=== PATIENT | female | born 1945 | race Caucasian/White ===

== ENCOUNTER 2024-04-17 16:38 | Inpatient (IN) ==
--- NOTE | 2024-04-17 16:54 | ED.PDOC ---
General ED Provider: Dr. CHARLIE WILSON MD Chief Complaint: Altered Mental Status Stated Complaint: Patient is a 78-year-old female that was brought into the emergency department for altered mental status. Patient's suppose a last known well by family member was this morning. They stated that the patient took a nap this afternoon and when she woke up has been somewhat altered. The patient's family ember stated that they gave her sodium pills thinking that this might help her but the patient's had no change. Patient's family bedside stated that the patient is normally very sharp and with it. They stated that the patient was talking about cooking bourbon balls this afternoon and could not complete sentences or thought processes. The family member stated that this is not like the patient. She denied the patient having any recent falls or head trauma. She denied the patient having any nausea, vomiting, diarrhea, dizziness, syncope, chest pain, or shortness of breath. In the emergency department patient has stable vital signs. Patient's GCS is 14. Time Seen by Provider: 04/17/24 16:42 Mode of Arrival: Wheelchair Information Source: Patient and Family Exam Limitations: No limitations Primary Care Provider: KAREN DAVID APRN, CHIEF SERVICE OBSERVER-C Nursing and Triage Documentation Reviewed and Agree: Yes What is Opioid Naive?: *Opioid Naive implies the patient is not already taking opioids or not chronically receiving opioids on a daily basis. *PRN dosing is not "usually" associated with tolerance. *Patients are at higher risk of over-sedation and aspiration. What is Opioid Tolerant?: *Opioid Tolerance implies less than the expected response to an opioid. *Acquired tolerance is defined by the patient taking 60mg of oral morphine daily (or equianalgesic dose of another opioid) for 1 week or more. *Often associated with chronic pain. *May take more than usual dose to achieve desired pain control. Review of Systems Review Of Systems Constitutional: Reports Other (Altered mental status) All Other Systems: Reviewed and Negative [facility] Medical History Wheezing R06.2 - Wheezing (ICD-10) Cough R05 - Cough (ICD-10) Hyponatremia E87.1 - Hypo-osmolality and hyponatremia (ICD-10) Fluid level behind tympanic membrane will try OTC antihistamine H65.90 - Unspecified nonsuppurative otitis media, unspecified ear (ICD-10) Decreased hearing of right ear will take OTC antihistamine appointment with Dr. Macdonald for evaluation H91.91 - Unspecified hearing loss, right ear (ICD-10) History of asthma Z87.09 - Personal history of other diseases of the respiratory system (ICD- 10) Cataract H26.9 - Unspecified cataract (ICD-10) Hypertension I10 - Essential (primary) hypertension (ICD-10) Allergic sinusitis J30.9 - Allergic rhinitis, unspecified (ICD-10) Family History Mother Cerebrovascular accident Hypertension FATHER Hypertension Social History Smoking and tobacco status: Current some day smoker Tobacco: How many years used: 20 Quit status: considering quitting Second hand smoke exposure: Yes Smoking risk assessment performed: No Alcohol intake: current Substance use type: does not use Angely/quaker: Church Special angely needs: No Agree to transfusion: Yes Adopted: No Caregiver/support person: Yes Foster care: No Household members: family Housing: house Lives independently: Yes Highest education level completed: high school graduate Financial difficulty paying for basics: not applicable service: No skilled nursing: No Current occupational status: retired Current occupational exposures/hazards: No Pets and animals: Yes Leisure activites: other History of recent travel: No Sexually active: No Do you think of yourself as: straight/heterosexual Current gender identity: female Seatbelt use: always Helmet use: No Drives intoxicated or rides with intoxicated straddle truck driver: No Water heater temperature set < 120 degrees: Yes Working smoke detector in home: Yes Fire extinguisher in home: Yes Carbon monoxide detector in home: Yes Firearms in home: Yes Firearms unloaded and locked: Yes Surgical History History of tubal ligation Z98.51 - Tubal ligation status (ICD-10) History of section Z98.891 - History of uterine scar from previous surgery (ICD-10) Cataract extraction and insertion of intraocular lens Status post appendectomy Z90.49 - Acquired absence of other specified parts of digestive tract (ICD- 10) Physical Exam Physical Exam Appearance: Reports Well-nourished and Other (Patient altered from baseline.) Ill-appearing: None Pain Distress: None Eyes: Reports SANJUANITA, EOMI and Conjunctiva clear ENT: Reports Nose normal and Oropharynx normal Neck: Supple Respiratory: Reports Airway patent, Breath sounds clear, Breath sounds equal and Respirations nonlabored Cardiovascular: Reports RRR, Pulses normal, No rub and No murmur GI/: Reports Soft, Nontender, No masses, Bowel sounds normal and No Organomegaly Musculoskeletal: Reports Normal strength, ROM intact and No edema Skin: Reports Warm, Dry and Normal color Neurological: Reports Sensation intact, Motor intact and Alert to verbal Psychiatric: Reports Other (Unable to examine due to patient's current status.) Critical Care Note Critical Care Note Total Critical Care Time (mins): 120 Comments: Critical Care Procedure Note Authorized and Performed by:Dr. Charlie Wilson MD, MPH Total critical care time: 120minutes Due to a high probability of clinically significant, life threatening deterioration, the patient required my highest level of preparedness to intervene emergently and I personally spent this critical care time directly and personally managing the patient. This critical care time included obtaining a history; examining the patient; pulse oximetry; ordering and review of studies; arranging urgent treatment with development of a management plan; evaluation of patient's response to treatment; frequent reassessment; and, discussions with other providers. This critical care time was performed to assess and manage the high probability of imminent, life-threatening deterioration that could result in multi-organ failure. It was exclusive of separately billable procedures and treating other patients and teaching time. Please see MDM section and the rest of the note for further information on patient assessment and treatment. Course Course 04/17/24 16:55 04/17/24 16:55 Orders, Labs, Meds: Lab Review 04/17/24 04/17/24 04/17/24 16:55 17:11 17:29 WBC 9.02 RBC 3.87 L Hgb 12.5 Hct 39.1 MCV 101.0 H MCH 32.3 H MCHC 32.0 RDW Coeff of [place] 13.8 Plt Count 239 Immature Gran % (Auto) 0.4 Neut % (Auto) 61.5 Lymph % (Auto) 26.7 [place] % (Auto) 8.8 Eos % (Auto) 1.8 Baso % (Auto) 0.8 Neut # (Auto) 5.6 Lymph # (Auto) 2.4 [place] # (Auto) 0.8 Eos # (Auto) 0.2 Baso # (Auto) 0.1 Immature Gran # (Auto) 0.0 Sodium 131.8 L Potassium 3.74 Chloride 93.8 L Carbon Dioxide 29.4 Anion Gap 12.34 BUN 17.0 Creatinine 0.80 Estimated GFR (MDRD) 70.00 BUN/Creatinine Ratio 21.25 Glucose 124.3 H Lactic Acid 0.72 Calcium 9.37 Magnesium 1.68 Total Bilirubin 0.47 AST 23.3 ALT 17.8 Alkaline Phosphatase 84.2 Troponin I < 0.012 Total Protein 8.15 Albumin 4.43 Globulin 3.72 Albumin/Globulin Ratio 1.19 Urine Color Light Urine Clarity Clear Urine pH 7.5 Ur Specific [place] 1.020 Urine Protein 1+ H Urine Glucose (UA) Negative Urine Ketones Trace H Urine Blood Trace-intact H Urine Nitrite Negative Urine Bilirubin Negative Urine Urobilinogen 0.2 Ur Leukocyte Esterase Negative Urine Microscopic WBC 0-2 Ur Squamous Epith Cells Not present Hyaline Casts 0-2 Urine Opiates Screen Negative Ur Oxycodone Screen Negative Urine Methadone Screen Negative Ur Barbiturates Screen Negative U Tricyclic Antidepress Negative Ur Phencyclidine Scrn Negative Ur Amphetamine Screen Negative U Methamphetamines Scrn Negative U Benzodiazepines Scrn Negative Urine Cocaine Screen Negative U Cannabinoids Screen Negative Influ A Molecular Assay Negative by naat Influ B Molecular Assay Negative by naat SARS CoV-2 RNA Rapid MARLA Negative Orders Category Date Time Status EKG-(ED ONLY) Stat CARDIO 04/17/24 16:46 Completed NEBULIZER TREATMENT Stat CARDIO 04/17/24 19:21 Ordered NPO REMINDER: IMAGING ONCE CARE 04/17/24 18:33 Completed Catheter [ED CATHETER INSERTION AND CARE] .ONCE EMERGENCY 04/17/24 18:45 Active ED HIGH SCHOOL SCIENCE TEACHER APPLIED .ONCE EMERGENCY 04/17/24 16:49 Active IV [ED IV/MEDIPORT/POWERPORT] .ONCE EMERGENCY 04/17/24 16:46 Active CBC W/ AUTO DIFF Stat LAB 04/17/24 16:55 Completed CMP [COMPREHENSIVE METABOLIC PANEL] Stat LAB 04/17/24 16:55 Completed DRUG SCREEN (RAPID FOR ED) [DRUG SCREEN, URINE, RAPID] LAB 04/17/24 17:29 Completed Stat FLU A/B MOLECULAR Stat LAB 04/17/24 17:11 Completed LACTIC ACID Stat LAB 04/17/24 16:55 Completed MAGNESIUM Stat LAB 04/17/24 16:55 Completed SARS COV-2 RNA RAPID MARLA Stat LAB 04/17/24 17:11 Completed TROPONIN I Stat LAB 04/17/24 16:55 Completed URINALYSIS C & S IF INDICATED Stat LAB 04/17/24 17:29 Completed 0.9 % Sodium Chloride [Saline Flush] Meds 04/17/24 16:46 Active 1 syr IVF PRN PRN Aspirin [Aspirin Chewable] Meds 04/17/24 18:34 Discontinued 324 mg PO ONCE STA Ceftriaxone 1 gm Vial [Rocephin 1 gm Vial] Meds 04/17/24 18:19 Discontinued 1 gm IVP ONCE ONE Hydralazine HCl Meds 04/17/24 18:17 Discontinued 10 mg IVP ONCE STA Ipratropium/Albuterol Neb [Duoneb] Meds 04/17/24 19:21 Discontinued 3 ml NEB ONCE STA Methylprednisolone Sod Succ/Pf [Solu-Medrol 125 mg] Meds 04/17/24 19:20 Discontinued 125 mg IVP ONCE ONE Sodium Chloride 0.9% [Sodium Chloride] 1,000 ml Meds 04/17/24 16:46 Discontinued IV BOLUS CHEST, 1V AP ONLY Stat RADS 04/17/24 16:[address] HEAD W/O CONTRAST Stat RADS 04/17/24 16:46 Completed CTA ANGIO HEAD Stat RADS 04/17/24 18:33 Completed CTA ANGIO NECK Stat RADS 04/17/24 18:33 Taken Medications Generic Name Dose Route Start Last Admin Trade Name Freq PRN Reason Stop Dose Admin Sodium Chloride 1 syr 04/17/24 16:46 0.9% Sodium Chloride 10 Ml Disp.Syrin IVF PRN PRN To flush IV Discontinued Medications Generic Name Dose Route Start Last Admin Trade Name Freq PRN Reason Stop Dose Admin Albuterol/Ipratropium 3 ml 04/17/24 19:21 Ipratropium/Albuterol Vial.Neb NEB 04/17/24 19:22 ONCE STA Aspirin 324 mg 04/17/24 18:34 04/17/24 18:47 Aspirin 81 Mg Tab.Chew PO 04/17/24 18:35 324 mg ONCE STA Administration Ceftriaxone Sodium 1 gm 04/17/24 18:19 04/17/24 19:00 Ceftriaxone 1 Gm Vial IVP 04/17/24 18:20 1 gm ONCE ONE Administration Hydralazine HCl 10 mg 04/17/24 18:17 04/17/24 18:37 Hydralazine Hcl 20 Mg/Ml Sdv IVP 04/17/24 18:18 10 mg ONCE STA Administration Sodium Chloride 1,000 mls @ 1,000 mls/hr 04/17/24 16:46 04/17/24 17:56 Sodium Chloride IV 04/17/24 17:45 1,000 mls/hr BOLUS ONE Administration Methylprednisolone Sodium Succinate 125 mg 04/17/24 19:20 Methylprednisolone Sod Succ/Pf 125 Mg/2 Ml Vial IVP 04/17/24 19:21 ONCE ONE Vital Signs: Temp Pulse Resp BP Pulse Ox 04/17/24 16:43 96.8 F L 84 20 178/79 H 92 L Physician Progress Note: Patient is a 78-year-old female that was brought into the emergency department for altered mental status. Patient's suppose a last known well by family member was this morning. They stated that the patient took a nap this afternoon and when she woke up has been somewhat altered. The patient's family ember stated that they gave her sodium pills thinking that this might help her but the patient's had no change. Patient's family bedside stated that the patient is normally very sharp and with it. They stated that the patient was talking about cooking bourbon balls this afternoon and could not complete sentences or thought processes. The family member stated that this is not like the patient. She denied the patient having any recent falls or head trauma. She denied the patient having any nausea, vomiting, diarrhea, dizziness, syncope, chest pain, or shortness of breath. In the emergency department patient has stable vital signs. Patient's GCS is 14. NIH Score 5. -At bedside patient was in understanding the commands that were being asked of her. I asked her to lift her legs and she would raise her arms. I also asked her to close her eyes and open them and she did not seem to understand. Eventually she did perform these tasks however it took a lot of explaining to the patient and showing the patient what we wanted her to do. -NIH Score 5. -Patient has O2 sat of 92 to 93% on room air. Will place patient on O2 at 2 L to keep patient's O2 sat above 94%. -Will order CT of the head due to patient's altered mental status. -Will order an EKG, troponin, and chest x-ray. Will also order baseline labs. -Will give the patient IV normal saline 1 L bolus for dehydration. -EKG shows normal sinus rhythm with a rate of 84 bpm. Normal axis noted. No acute ST elevations noted. This was interpreted by the ER physician. -CBC unremarkable. Patient has mild hyponatremia at 131 and hypochloremia at 93.8. We are currently treated with IV normal saline. 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 2. Atrophy 3. Scattered white matter attenuation likely secondary to chronic small vessel disease. 4. No acute findings. -Since patient does not have an intracranial bleed will give aspirin 324 mg once for antiplatelet therapy. -Patient's blood pressure is gone up to 206/85. Will give IV hydralazine 10 mg for hypertensive emergency. -Chest x-ray shows a left lower lung infiltrate possibly pneumonia. This was interpreted by the ER physician. Will treat for pneumonia as possible cause of patient's altered mental status. Will give IV Rocephin 1 g. -Will give IV methylprednisolone 125 mg and a DuoNeb treatment for patient's COPD. -Troponin negative. Urinalysis negative, UDS negative. -Patient's blood pressures come down to 183/83. -CTA of the head showed - No large vessel occlusion, hemodynamically significant stenosis or aneurysms. Mild small vessel disease and age-related involution. No acute intracranial process. Left maxillary sinus disease. -Will contact hospitalist for admission. (1999) spoke to the hospitalist, Anthony Singleton NP at [facility] about admission for altered mental status and community-acquired pneumonia with acute hypoxemic respiratory failure. She is agreed to admit the patient. At the current time patient's vital signs are stable. Patient is alert and oriented to person and place. GCS 15 Discharge Plan Discharge Patient Disposition: PLACED OBSERVATION Discharge Problem: Acute alteration in mental status, Generalized weakness, Hypertensive emergency, Community acquired pneumonia of left lower lobe of lung, Acute hypoxic respiratory failure, Acute hyponatremia Did you review [place] TEST FACILITY ENGINEER for ALL controlled substances?: Not Applicable ED Provider: CHARLIE WILSON Condition: Stable Parks Coma Scale Parks Coma Scale Eye Opening Response: Spontaneously Best Verbal Response: Confused Best Motor Resposne: Obeys Commands Suzy Coma Scale Score Total: 14 Response Scores: Best Response = 15 Comatose Client = 8 or Less Totally Unresponsive = 3
[2024-04-17 17:04] LABS: BASOPHILS # (AUTO) 0.1 K/uL (0-0.2); BASOPHILS % (AUTO) 0.8 % (0.0-3.0); EOSINOPHILS # (AUTO) 0.2 K/ul (0.0-0.7); EOSINOPHILS % (AUTO) 1.8 % (0.0-7.0); HEMATOCRIT 39.1 % (37.0-47.0); HEMOGLOBIN 12.5 g/dl (12.0-16.0); IMMATURE GRANULOCYTE % (AUTO) 0.4 % (0.0-5.0); LYMPHOCYTES # (AUTO) 2.4 K/uL (0.60-3.4); LYMPHOCYTES % (AUTO) 26.7 (10.0-50.0); MEAN CORPUSCULAR HEMOGLOBIN 32.3 pg (27.0-31.0); MONOCYTES # (AUTO) 0.8 K/uL (0.4-2.0); MONOCYTES % (AUTO) 8.8 (0-10); NEUTROPHILS # (AUTO) 5.6 K/ul (2.0-6.9); NEUTROPHILS % (AUTO) 61.5 % (42.2-75.2); PLATELET COUNT 239 10^3/uL (140-440); RDW COEFFICIENT OF VARIATION 13.8 % (11.6-14.8); RED BLOOD COUNT 3.87 10^6/ul (4.20-5.40); WHITE BLOOD COUNT 9.02 K/ul (4.6-10.2)
[2024-04-17 17:19] LABS: ALANINE AMINOTRANSFERASE 17.8 U/L (0-35); ALBUMIN 4.43 g/dL (3.5-5.0); ALKALINE PHOSPHATASE 84.2 U/L (53-141); ASPARTATE AMINO TRANSFERASE 23.3 U/L (14-36); BILIRUBIN,TOTAL 0.47 mg/dL (0.2-1.3); CALCIUM 9.37 mg/dL (8.4-10.2); CARBON DIOXIDE 29.4 mmol/L (22-30.0); CHLORIDE 93.8 mmol/L (98-107); GLUCOSE 124.3 mg/dL (74-106); MAGNESIUM 1.68 mg/dL (1.6-2.3); POTASSIUM 3.74 mmol/L (3.5-5.1); SODIUM 131.8 mmol/L (134.5-145); TOTAL PROTEIN 8.15 g/dL (6.3-8.2)
[2024-04-17 17:31] LABS: TROPONIN I < 0.012 ng/ml (0.0000-0.120)
--- NOTE | 2024-04-17 17:51 | DI ---
EXAM: CHEST FRONTAL VIEW HISTORY: Altered mental status COMPARISON: None IMPRESSION: Heart size upper limit normal. Mild to moderate atherosclerotic disease. Questionable mild infiltra te in the left base. Lungs were otherwise unremarkable. No pleural fluid, vascular congestion or pn eumothorax. No acute bony finding. - - - - -
[2024-04-17 17:52] LABS: BILIRUBIN,URINE Negative (NEGATIVE); CLARITY,URINE Clear (CLEAR); COLOR,URINE Light (YELLOW); GLUCOSE, URINE (UA) Negative (NEGATIVE); KETONES,URINE Trace (NEGATIVE); LEUKOCYTE ESTERASE ,URINE Negative (NEGATIVE); NITRITE,URINE Negative (NEGATIVE); PH,URINE 7.5 (5-9); PROTEIN,URINE 1+ (NEGATIVE); URINE, BLOOD Trace-intact (NEGATIVE); UROBILINOGEN,URINE 0.2 (0.2)
--- NOTE | 2024-04-17 17:54 | CT ---
EXAM: CT HEAD WITHOUT CONTRAST TECHNIQUE: Noncontrast CT of the head with multiple reformats. HISTORY: Altered mental status COMPARISON: None. FINDINGS: Ventricular size is normal. Old infarct right cerebellar hemisphere. Mild temporal atrophy. Scatter ed white matter attenuation likely secondary to chronic small vessel ischemia. Old appearing lacunar infarct of the junction of the caudate head and caudate body nucleus on the left. [place]-white matter interfaces are preserved with no evidence of acute infarct. No evidence of intracranial hemorrhage. No midline shift or mass effect. No ectopia. Paranasal sinuses and mastoid air cells are clear. O rbital contents are normal. The calvarium is intact. IMPRESSION: 1. 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 2. Atrophy 3. Scattered white matter attenuation likely secondary to chronic small vessel disease. 4. No acute findings. All CT scans are performed using dose optimization techniques as appropriate to the performed exam an d includes at least one of the following: Automated exposure control, adjustment of the mA and/or kV according to size, and the use of iterative reconstruction technique. All CT scans are performed using dose optimization techniques as appropriate to the performed exam an d include at least one of the following: Automated exposure control, adjustment of the mA and/or kV according t o size, and the use of iterative reconstruction technique.
[2024-04-17 17:55] LABS: SQUAMOUS EPITHELIAL CELL,UR NOT PRESENT (0-5)
[2024-04-17] MEDS: SODIUM CHLORIDE 1,000 ML IV ONE (17:56)
[2024-04-17 18:03] LABS: AMPHETAMINE SCREEN,URINE NEGATIVE (NEGATIVE); BARBITURATE SCREEN,URINE NEGATIVE (NEGATIVE); BENZODIAZEPINES SCREEN,URINE NEGATIVE (NEGATIVE); COCAIN SCREEN,URINE NEGATIVE (NEGATIVE); METHADONE URINE SCREEN NEGATIVE (NEGATIVE); METHAMPHETAMINES SCREEN,URINE NEGATIVE (NEGATIVE); OPIATE SCREEN,URINE NEGATIVE (NEGATIVE); OXYCODONE URINE SCREEN NEGATIVE (NEGATIVE); PHENCYCLIDINE SCREEN,URINE NEGATIVE (NEGATIVE); TRICYCLIC ANTIDEPRESSANTS URIN NEGATIVE (NEGATIVE)
[2024-04-17 18:04] LABS: CANNABINOID SCREEN,URINE NEGATIVE (NEGATIVE)
[2024-04-17 18:07] LABS: URINE WBC, MICROSCOPIC 0-2 (0-2)
[2024-04-17 18:08] LABS: HYALINE CASTS, URINE 0-2 (NOT PRESENT)
[2024-04-17 18:32] LABS: MOLECULAR FLU A NEGATIVE BY NAAT (NEGATIVE); MOLECULAR FLU B NEGATIVE BY NAAT (NEGATIVE); SARS COV-2 RNA RAPID NAAT NEGATIVE (NEGATIVE)
[2024-04-17] MEDS: HYDRALAZINE HCL IVP STA (18:37)
[2024-04-17] MEDS: ASPIRIN CHEWABLE PO STA (18:47)
[2024-04-17] MEDS: ROCEPHIN 1 GM VIAL IVP ONE (19:00)
--- NOTE | 2024-04-17 19:46 | CT ---
EXAM: CTA HEAD WITHOUT/WITH CONTRAST HISTORY: Altered mental status COMPARISON: CT head from 04/17/2024 TECHNIQUE: Multi-slice precontrast and postcontrast transaxial helical images are acquired through [facility] head according to an angiogram protocol. 3-D volume images are provided. All CT scans are perfor med using dose optimization techniques as appropriate to the performed exam and includes at least one of the following: Automated exposure control, adjustment of the mA and/or kV according to size, and the use of iterative reconstruction technique. CONTRAST: Intravenous FINDINGS: Vascular: The left vertebral artery is dominant. The distal right vertebral artery is diminutive in caliber but patent. The basilar artery is patent. The cavernous through supraclinoid segments of [facility] internal carotid arteries are atherosclerotic with calcified atheromatous plaque. There is no shara dence of hemodynamically significant stenosis. The anterior cerebral arteries have normal caliber an d patency. The bilateral middle cerebral arteries have normal caliber and patency. The posterior ce rebral arteries have normal caliber and patency. No aneurysms or hemodynamically significant stenosi s. Nonvascular: The midline structures are central. The ventricles and sulci are slightly prominent. There is low attenuation in the periventricular and subcortical white matter. No acute intraparenchy mal or extra-axial hemorrhage. There is mucous membrane thickening within the left maxillary sinus. The other paranasal sinuses and mastoid air cells are clear. The calvarium is intact. IMPRESSION: - No large vessel occlusion, hemodynamically significant stenosis or aneurysms. - Mild small vessel disease and age-related involution. - No acute intracranial process. - Left maxillary sinus disease. . All CT scans are performed using dose optimization techniques as appropriate to the performed exam an d include at least one of the following: Automated exposure control, adjustment of the mA and/or kV according t o size, and the use of iterative reconstruction technique.
[2024-04-17] MEDS: DUONEB NEB STA (19:53)
[2024-04-17] MEDS: SOLU-MEDROL 125 MG IVP ONE (20:01)
--- NOTE | 2024-04-17 20:01 | CT ---
EXAM: CT ANGIOGRAPHY NECK HISTORY: Altered mental status, concern for stroke TECHNIQUE: CT angiography of the neck with and without intravenous contrast. Multiplanar images. 3 -D reconstruction images were acquired and submitted. MIP images provided. FINDINGS: The common carotid arteries are patent. There is calcific atherosclerotic disease at the c arotid bifurcations leading to mild stenosis within the carotid bulb on the right. Mild indicates le ss than 50% vessel diameter. On the left, the atherosclerotic disease leads to moderate to severe st enosis within the carotid bulb and mild stenosis within the lower internal carotid artery. Moderate indicates 50 at 69% vessel diameter. Severe indicates greater than or equal to 70% but less than doris r occlusion. The upper internal carotid arteries and the external carotid arteries bilaterally were otherwise adequately patent. The cervical level vertebral arteries are patent with the left artery d ominant. There is mild ostial stenosis of the left vertebral artery. - - - - - IMPRESSION: 1. The common carotid arteries are patent. There is calcific atherosclerotic disease at the carotid bifurcations leading to mild stenosis within the carotid bulb on the right. On the left, the athero sclerotic disease leads to moderate to severe stenosis within the carotid bulb and mild stenosis with in the lower internal carotid artery. The upper internal carotid arteries and the external carotid a rteries bilaterally were otherwise adequately patent. 2. The cervical level vertebral arteries are patent with the left artery dominant. There is mild os tial stenosis of the left vertebral artery. - - - - - All CT scans are performed using dose optimization techniques as appropriate to the performed exam an d include at least one of the following: Automated exposure control, adjustment of the mA and/or kV according t o size, and the use of iterative reconstruction technique.
[2024-04-17] MEDS: OMNIPAQUE 350 MG/ML 100ML IVP ONE (20:16)
[2024-04-17] MEDS ORDERED: TYLENOL PO PRN (20:21)
[2024-04-17 22:13] VITALS: BMI 27.5
[2024-04-17] MEDS: SODIUM CHLORIDE 1,000 ML IV SCH (22:23)
[2024-04-18] MEDS: SOLU-MEDROL 40 MG IVP SCH (02:36)
[2024-04-18 05:23] LABS: BASOPHILS % (AUTO) 0.2 % (0.0-3.0); EOSINOPHILS # (AUTO) 0.1 K/ul (0.0-0.7); EOSINOPHILS % (AUTO) 1.4 % (0.0-7.0); HEMATOCRIT 37.5 % (37.0-47.0); HEMOGLOBIN 12.2 g/dl (12.0-16.0); IMMATURE GRANULOCYTE # (AUTO) 0.1 (0.0-1.0); IMMATURE GRANULOCYTE % (AUTO) 0.7 % (0.0-5.0); LYMPHOCYTES # (AUTO) 1.1 K/uL (0.60-3.4); LYMPHOCYTES % (AUTO) 12.9 (10.0-50.0); MEAN CORPUSCULAR HEMOGLOBIN 32.4 pg (27.0-31.0); MEAN CORPUSCULAR HGB CONC 32.5 (31.8-35.4); MEAN CORPUSCULAR VOLUME 99.7 fl (81.0-99.0); MONOCYTES % (AUTO) 0.4 (0-10); NEUTROPHILS # (AUTO) 7.1 K/ul (2.0-6.9); NEUTROPHILS % (AUTO) 84.4 % (42.2-75.2); PLATELET COUNT 245 10^3/uL (140-440); RDW COEFFICIENT OF VARIATION 13.7 % (11.6-14.8); RED BLOOD COUNT 3.76 10^6/ul (4.20-5.40); WHITE BLOOD COUNT 8.43 K/ul (4.6-10.2)
[2024-04-18 05:42] LABS: ALANINE AMINOTRANSFERASE 17.1 U/L (0-35); ALBUMIN 4.28 g/dL (3.5-5.0); ALKALINE PHOSPHATASE 74.5 U/L (53-141); ASPARTATE AMINO TRANSFERASE 29.3 U/L (14-36); BILIRUBIN,TOTAL 0.43 mg/dL (0.2-1.3); BLOOD UREA NITROGEN 13.3 mg/dL (7-17); CALCIUM 8.93 mg/dL (8.4-10.2); CARBON DIOXIDE 28.2 mmol/L (22-30.0); CHLORIDE 92.5 mmol/L (98-107); CREATININE 0.64 mg/dL (0.60-1.30); GLUCOSE 150.3 mg/dL (74-106); POTASSIUM 3.45 mmol/L (3.5-5.1); SODIUM 127.5 mmol/L (134.5-145); TOTAL PROTEIN 8.13 g/dL (6.3-8.2)
[2024-04-18] MEDS: CALAN PO SCH (08:52)
[2024-04-18] MEDS: ZITHROMAX PO SCH (08:52)
[2024-04-18] MEDS: ROCEPHIN 1 GM/50 ML D5W 1 GM/50 ML BAG IV SCH (08:52)
[2024-04-18] MEDS: TENORMIN PO SCH (08:52)
[2024-04-18] MEDS: FOLIC ACID PO SCH (08:53)
[2024-04-18] MEDS: K-DUR PO ONE (08:53)
[2024-04-18] MEDS ORDERED: ALBUTEROL 0.083% NEB NEB PRN (09:09)
[2024-04-18] MEDS: DUONEB NEB SCH (09:34)
--- NOTE | 2024-04-18 11:17 | PCM ---
Date of Service Date Seen by Provider: 04/18/24 Time Seen by Provider: 08:30 Admit Day/Time Admission Date: 04/17/24 Reason for Admission Chief Complaint: ALT MENTAL STATUS, RESPIRATORY ISSUES Hospital Provider Hospital Provider: BIJAN LOZANO, [facility] [place] Primary Care Physician Primary Care Physician: KAREN DAVID APRN, FNP-C History of Present Illness History of Present Illness: 78 yo female with pmh of copd and htn presented to the ER with complaints of AMS. Daughter reported in ER that patient layed down to take a nap and when she woke up she was talking out of her head and not making sense. CT head negative. No focal deficits. Alert and oriented in ER. Patient found to have pneumonia and began requiring 2L of oxygen due to sat dropping down to 90%. Does not wear oxygen at home during the day, but does wear 2L at bedtime or napping. Patient alert and oriented this am. Reports she has felt short of breath and nonproductive cough present over the last couple days. Denies fever that she is aware of or other symptoms. Patient has moderate conversational dyspnea at this time. Case Discussed With Case Discussed With: Patient's case was discussed with the ER Physicians, Dr. Sahni. [facility] Medical History Wheezing R06.2 - Wheezing (ICD-10) Cough R05 - Cough (ICD-10) Hyponatremia E87.1 - Hypo-osmolality and hyponatremia (ICD-10) Fluid level behind tympanic membrane will try OTC antihistamine H65.90 - Unspecified nonsuppurative otitis media, unspecified ear (ICD-10) Decreased hearing of right ear will take OTC antihistamine appointment with Dr. Macdonald for evaluation H91.91 - Unspecified hearing loss, right ear (ICD-10) History of asthma Z87.09 - Personal history of other diseases of the respiratory system (ICD- 10) Cataract H26.9 - Unspecified cataract (ICD-10) Hypertension I10 - Essential (primary) hypertension (ICD-10) Allergic sinusitis J30.9 - Allergic rhinitis, unspecified (ICD-10) Surgical History History of tubal ligation Z98.51 - Tubal ligation status (ICD-10) History of section Z98.891 - History of uterine scar from previous surgery (ICD-10) Cataract extraction and insertion of intraocular lens Status post appendectomy Z90.49 - Acquired absence of other specified parts of digestive tract (ICD- 10) Family History Mother Cerebrovascular accident Hypertension FATHER Hypertension Social History Smoking and tobacco status: Current every day smoker Tobacco: How many years used: 60 (less than 1/2 pack a day) Quit status: considering quitting Second hand smoke exposure: Yes Smoking risk assessment performed: No Alcohol intake: current Alcohol intake frequency: 0-2 drinks per day Alcohol type: wine Substance use type: does not use Angely/sikh: Cb Special angely needs: No Agree to transfusion: Yes Adopted: No Caregiver/support person: Yes Foster care: No Household members: family Housing: house Lives independently: Yes Highest education level completed: high school graduate Financial difficulty paying for basics: not applicable service: No prison: No Current occupational status: retired Current occupational exposures/hazards: No Pets and animals: Yes Leisure activites: other History of recent travel: No Sexually active: No Do you think of yourself as: straight/heterosexual Current gender identity: female Seatbelt use: always Helmet use: No Drives intoxicated or rides with intoxicated stud driver: No Water heater temperature set < 120 degrees: Yes Working smoke detector in home: Yes Fire extinguisher in home: Yes Carbon monoxide detector in home: Yes Firearms in home: Yes Firearms unloaded and locked: Yes Allergies Allergies Allergy/AdvReac Type Severity Reaction Status Date / Time Penicillins Allergy Unsure. Verified 04/17/24 16:57 Thinks it was a rash Current Medications Home Medications cetirizine 10 mg capsule (Zyrtec) 10 mg PO QDAY PRN allergy symptoms #30 caps 06/24/23 [Rx Confirmed 04/17/24 Last Taken Unknown] albuterol sulfate 2.5 mg/3 mL (0.083 %) solution for nebulization See Rx Instructions .Route .COMPLEX #180 ea 10/15/23 [Rx Confirmed 04/17/24 Last Taken 04/17/24] hydrochlorothiazide 12.5 mg tablet 12.5 mg PO QAM PRN swelling #14 tabs 11/10/23 [Rx Confirmed 04/17/24 Last Taken 04/10/24] potassium chloride 8 mEq capsule,extended release 8 meq PO QDAY PRN on days of HCTZ #14 caps 11/10/23 [Rx Confirmed 04/17/24 Last Taken 04/10/24] folic acid 1 mg tablet See Rx Instructions .Route .COMPLEX #90 tabs 01/18/24 [Rx Confirmed 04/17/24 Last Taken 03/17/24] verapamil 80 mg tablet 80 mg PO TID #90 tabs 02/16/24 [Rx Confirmed 04/17/24 Last Taken 04/17/24 15:30] albuterol sulfate 90 mcg/actuation aerosol inhaler 2 puff PO Q6H PRN for wheezing #6.7 ea 02/29/24 [Rx Confirmed 04/17/24 Last Taken 04/17/24] atenolol 100 mg tablet See Rx Instructions .Route .COMPLEX #90 tabs 02/29/24 [Rx Confirmed 04/17/24 Last Taken 04/17/24] mometasone-formoterol HFA 100 mcg-5 mcg/actuation aerosol inhaler (Dulera) See Rx Instructions .Route .COMPLEX #13 ea 02/29/24 [Rx Confirmed 04/17/24 Last Taken 04/17/24 08:00] triamcinolone acetonide 0.1 % topical cream See Rx Instructions .Route .COMPLEX PRN skin irritation 04/17/24 [History Confirmed 04/17/24 Last Taken Unknown] Home Acetaminophen (Acetaminophen 325 Mg Tablet) 650 mg PO Q4H PRN PRN Reason: Mild Pain Albuterol Sulfate (Albuterol Sulfate 0.083% Vial.Neb) 2.5 mg NEB RTQ4H PRN PRN Reason: Wheezing Albuterol/Ipratropium (Ipratropium/Albuterol Vial.Neb) 3 ml NEB RTQ4H [facility] Last Admin: 04/18/24 09:34 Dose: 3 ml Atenolol (Atenolol 50 Mg Tablet) 100 mg PO DAILY [facility] Last Admin: 04/18/24 08:52 Dose: 100 mg Azithromycin (Azithromycin 250 Mg Tablet) 500 mg PO DAILY [facility] Stop: 04/21/24 08:59 Last Admin: 04/18/24 08:52 Dose: 500 mg Folic Acid (Folic Acid 1 Mg Tablet) 1 mg PO DAILY [facility] Last Admin: 04/18/24 08:53 Dose: 1 mg Sodium Chloride (Sodium Chloride) 1,000 mls @ 100 mls/hr IV .Q10H [facility] Last Admin: 04/18/24 08:53 Dose: 100 mls/hr CEFTRIAXONE/D5W 1 GM PREMIX (Rocephin 1 Gm/50 Ml D5w) 1 gm in 50 mls @ 100 mls/hr IV DAILY [facility] Stop: 04/21/24 08:59 Last Admin: 04/18/24 08:52 Dose: 100 mls/hr Methylprednisolone Sodium Succinate (Methylprednisolone Sod Succ/Pf 40 Mg/Ml Vial) 40 mg IVP Q8HR [facility] Last Admin: 04/18/24 05:18 Dose: 40 mg Sodium Chloride (0.9% Sodium Chloride 10 Ml Disp.Syrin) 1 syr IVF PRN PRN PRN Reason: To flush IV Verapamil HCl (Verapamil Hcl 80 Mg Tablet) 80 mg PO TID [facility] Last Admin: 04/18/24 08:52 Dose: 80 mg Discontinued Medications Albuterol/Ipratropium (Ipratropium/Albuterol Vial.Neb) 3 ml NEB ONCE STA Stop: 04/17/24 19:22 Last Admin: 04/17/24 19:53 Dose: 3 ml Aspirin (Aspirin 81 Mg Tab.Chew) 324 mg PO ONCE STA Stop: 04/17/24 18:35 Last Admin: 04/17/24 18:47 Dose: 324 mg Ceftriaxone Sodium (Ceftriaxone 1 Gm Vial) 1 gm IVP ONCE ONE Stop: 04/17/24 18:20 Last Admin: 04/17/24 19:00 Dose: 1 gm Hydralazine HCl (Hydralazine Hcl 20 Mg/Ml Sdv) 10 mg IVP ONCE STA Stop: 04/17/24 18:18 Last Admin: 04/17/24 18:37 Dose: 10 mg Sodium Chloride (Sodium Chloride) 1,000 mls @ 1,000 mls/hr IV BOLUS ONE Stop: 04/17/24 17:45 Last Admin: 04/17/24 17:56 Dose: 1,000 mls/hr Iohexol (Iohexol 350 Mg/Ml 100ml) 100 ml IVP ONCE ONE Stop: 04/17/24 20:16 Last Admin: 04/17/24 20:16 Dose: 100 ml Methylprednisolone Sodium Succinate (Methylprednisolone Sod Succ/Pf 125 Mg/2 Ml Vial) 125 mg IVP ONCE ONE Stop: 04/17/24 19:21 Last Admin: 04/17/24 20:01 Dose: 125 mg Potassium Chloride (Potassium Chloride 20 Meq Tab) 40 meq PO ONCE ONE Stop: 04/18/24 08:28 Last Admin: 04/18/24 08:53 Dose: 40 meq Opioid Naive vs. Tolerant Does Patient Take Opioids?: No Is Patient Opioid Naive?: Yes What is Opioid Naive?: *Opioid Naive implies the patient is not already taking opioids or not chronically receiving opioids on a daily basis. *PRN dosing is not "usually" associated with tolerance. *Patients are at higher risk of over-sedation and aspiration. Is Patient Opioid Tolerant?: No What is Opioid Tolerant?: *Opioid Tolerance implies less than the expected response to an opioid. *Acquired tolerance is defined by the patient taking 60mg of oral morphine daily (or equianalgesic dose of another opioid) for 1 week or more. *Often associated with chronic pain. *May take more than usual dose to achieve desired pain control. Review of Systems Constitutional: Reports No symptoms Head: Reports Normocephalic Eyes: Reports No symptoms Ears: Reports No symptoms Nose: Reports No symptoms Mouth: Reports No symptoms Throat: Reports No symptoms Cardiovascular: Reports No symptoms Respiratory: Reports Cough and Shortness of air Gastrointestinal: Reports No symptoms Genitourinary: Reports No Symptoms Musculoskeletal: Reports No symptoms Endocrine: Reports No symptoms Hematology: Reports No symptoms Immunology: Reports No symptoms Neurological: Reports Other (Confused upon awakening after a nap) Psychiatric: Reports No symptoms Physical examination Most Recent Vital Signs: Most Recent Vital Signs Temperature 98.7 F 04/18/24 10:00 Temperature Source Temporal Artery Scan 04/18/24 10:00 Temperature Source Infrared 04/17/24 16:43 Pulse Rate 82 04/18/24 10:00 Respiratory Rate 20 04/18/24 10:00 Blood Pressure 147/75 H 04/18/24 10:00 Blood Pressure Mean 99 04/18/24 10:00 Blood Pressure Left Arm 171/63 04/17/24 21:04 Blood Pressure Location Left Arm 04/18/24 10:00 Blood Pressure Position Supine 04/18/24 10:00 O2 Sat by Pulse Oximetry 93 L 04/18/24 10:00 Oxygen Delivery Method Nasal Cannula 04/18/24 11:00 Oxygen Flow Rate 2 04/18/24 10:00 Height 5 ft 04/17/24 21:04 Weight 63.9 kg 04/17/24 21:04 Telemetry Type Remote Telemetry 04/17/24 21:58 Telemetry Monitoring Continues 04/18/24 07:00 Telemetry Heart Rate 86 04/18/24 07:00 EKG TX Interval 0.16 04/18/24 07:00 EKG QRS Interval 0.10 04/18/24 07:00 Telemetry Strip Reading Sinus Arrhythmia 04/18/24 07:00 Appearance: Positive No Apparent Distress and Alert and Oriented x3 Skin: Positive Warm and Good Turgor HEENT: Positive Normocephalic and PERRLA Neck: Positive Supple and Midline Trachea Chest/Lungs: Positive Symmetrical With Equal Breath Sounds and Clear to Auscultation Bilaterally (significantly diminished ) Heart: Positive RRR and Pulses Normal GI/: Positive Soft, Nontender, Bowel Sounds Normal, No Distention and No Organomegaly Musculoskeletal: Positive Not Examined Extremities: Positive Intact Peripheral Pulses, Stable Joints Without Laxity and Good ROM in All Joints Neurological: Positive Sensation Intact, Motor intact, Alert, Oriented and Other (generalized weakness) Labs This Visit Labs This Visit: Labs This Visit 04/17/24 04/17/24 04/17/24 16:55 17:11 17:29 WBC 9.02 RBC 3.87 L Hgb 12.5 Hct 39.1 MCV 101.0 H MCH 32.3 H MCHC 32.0 RDW Coeff of [place] 13.8 Plt Count 239 Immature Gran % (Auto) 0.4 Neut % (Auto) 61.5 Lymph % (Auto) 26.7 [place] % (Auto) 8.8 Eos % (Auto) 1.8 Baso % (Auto) 0.8 Neut # (Auto) 5.6 Lymph # (Auto) 2.4 [place] # (Auto) 0.8 Eos # (Auto) 0.2 Baso # (Auto) 0.1 Immature Gran # (Auto) 0.0 Sodium 131.8 L Potassium 3.74 Chloride 93.8 L Carbon Dioxide 29.4 Anion Gap 12.34 BUN 17.0 Creatinine 0.80 Estimated GFR (MDRD) 70.00 BUN/Creatinine Ratio 21.25 Glucose 124.3 H Lactic Acid 0.72 Calcium 9.37 Magnesium 1.68 Total Bilirubin 0.47 AST 23.3 ALT 17.8 Alkaline Phosphatase 84.2 Troponin I < 0.012 Total Protein 8.15 Albumin 4.43 Globulin 3.72 Albumin/Globulin Ratio 1.19 Urine Color Light Urine Clarity Clear Urine pH 7.5 Ur Specific [place] 1.020 Urine Protein 1+ H Urine Glucose (UA) Negative Urine Ketones Trace H Urine Blood Trace-intact H Urine Nitrite Negative Urine Bilirubin Negative Urine Urobilinogen 0.2 Ur Leukocyte Esterase Negative Urine Microscopic WBC 0-2 Ur Squamous Epith Cells Not present Hyaline Casts 0-2 Urine Opiates Screen Negative Ur Oxycodone Screen Negative Urine Methadone Screen Negative Ur Barbiturates Screen Negative U Tricyclic Antidepress Negative Ur Phencyclidine Scrn Negative Ur Amphetamine Screen Negative U Methamphetamines Scrn Negative U Benzodiazepines Scrn Negative Urine Cocaine Screen Negative U Cannabinoids Screen Negative Influ A Molecular Assay Negative by naat Influ B Molecular Assay Negative by naat SARS CoV-2 RNA Rapid MARLA Negative 04/18/24 04:57 WBC 8.43 RBC 3.76 L Hgb 12.2 Hct 37.5 MCV 99.7 H MCH 32.4 H MCHC 32.5 RDW Coeff of [place] 13.7 Plt Count 245 Immature Gran % (Auto) 0.7 Neut % (Auto) 84.4 H Lymph % (Auto) 12.9 [place] % (Auto) 0.4 Eos % (Auto) 1.4 Baso % (Auto) 0.2 Neut # (Auto) 7.1 H Lymph # (Auto) 1.1 [place] # (Auto) 0.0 L Eos # (Auto) 0.1 Baso # (Auto) 0.0 Immature Gran # (Auto) 0.1 Sodium 127.5 L Potassium 3.45 L Chloride 92.5 L Carbon Dioxide 28.2 Anion Gap 10.25 BUN 13.3 Creatinine 0.64 Estimated GFR (MDRD) 90.00 BUN/Creatinine Ratio 20.78 Glucose 150.3 H Lactic Acid Calcium 8.93 Magnesium Total Bilirubin 0.43 AST 29.3 ALT 17.1 Alkaline Phosphatase 74.5 Troponin I Total Protein 8.13 Albumin 4.28 Globulin 3.85 Albumin/Globulin Ratio 1.11 Urine Color Urine Clarity Urine pH Ur Specific [place] Urine Protein Urine Glucose (UA) Urine Ketones Urine Blood Urine Nitrite Urine Bilirubin Urine Urobilinogen Ur Leukocyte Esterase Urine Microscopic WBC Ur Squamous Epith Cells Hyaline Casts Urine Opiates Screen Ur Oxycodone Screen Urine Methadone Screen Ur Barbiturates Screen U Tricyclic Antidepress Ur Phencyclidine Scrn Ur Amphetamine Screen U Methamphetamines Scrn U Benzodiazepines Scrn Urine Cocaine Screen U Cannabinoids Screen Influ A Molecular Assay Influ B Molecular Assay SARS CoV-2 RNA Rapid MARLA Imaging Imaging: EXAM: CHEST FRONTAL VIEW IMPRESSION: Heart size upper limit normal. Mild to moderate atherosclerotic disease. Questionable mild infiltrate in the left base. Lungs were otherwise unremarkable. No pleural fluid, vascular congestion or pneumothorax. No acute bony finding EXAM: CT HEAD WITHOUT CONTRAST FINDINGS: Ventricular size is normal. Old infarct right cerebellar hemisphere. Mild temporal atrophy. Scattered white matter attenuation likely secondary to chronic small vessel ischemia. Old appearing lacunar infarct of the junction of the caudate head and caudate body nucleus on the left. [place]-white matter interfaces are preserved with no evidence of acute infarct. No evidence of intracranial hemorrhage. No midline shift or mass effect. No ectopia. Paranasal sinuses and mastoid air cells are clear. Orbital contents are normal. The calvarium is intact. IMPRESSION: 1. 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 2. Atrophy 3. Scattered white matter attenuation likely secondary to chronic small vessel disease. 4. No acute findings. Review Statement Review Statement: I have independently reviewed and interpreted the labs/EKGs/imaging that were ordered by the ER provider. I have reviewed all outside records that are liaz ilable currently in our EMR including imaging/notes/labs from previous visits. Plan Plan: 1. Acute Hypoxic Respiratory Failure in setting of pneumonia and COPD exacerbation - wean O2 as tolerated, steroids, nebs 2. CAP - rocephin and azith, steroids, nebs 3. COPD - chronic, wears 2L at bedtime, plan as above 4. Hyponatremia - chronic, mild, NS@100mL/hr 5. Acute Metabolic Encephalopathy - likely due to hypoxia and pneumonia, avoid neurologically altering agents, monitor 6. Hypertension - chronic, continue home medication DVT Prophylaxis: Ambulation Time Spent: Greater than 80 minutes spent with patient, 50% of the time spent with this patient was devoted to counseling and coordination of care. [facility]annin minutes spent discussing advance care planning. Disposition: Admit to: Med/Surg Observation Full Code Discussed Plan of Care with Dr. Jeffrey Monzon. Medications Medication Orders: Medications Ordered Category Date Time Status 0.9 % Sodium Chloride [Saline Flush] Meds 04/17/24 16:46 Active 1 syr IVF PRN PRN Acetaminophen [Tylenol] Meds 04/17/24 20:21 Active 650 mg PO Q4H PRN Albuterol Sulfate 0.083% Neb [Albuterol 0.083% Neb] Meds 04/18/24 09:09 Active 2.5 mg NEB RTQ4H PRN Atenolol [Tenormin] Meds 04/18/24 09:00 Active 100 mg PO DAILY Azithromycin [Zithromax] Meds 04/18/24 09:00 Active 500 mg PO DAILY Ceftriaxone/D5w 1 gm Premix [Rocephin 1 gm/50 ml D5w] Meds 04/18/24 09:00 Active 1 gm in 50 ml IV DAILY Folic Acid Meds 04/18/24 09:00 Active 1 mg PO DAILY Ipratropium/Albuterol Neb [Duoneb] Meds 04/18/24 10:00 Active 3 ml NEB RTQ4H Methylprednisolone Sod Succ/Pf [Solu-Medrol 40 mg] Meds 04/18/24 03:00 Active 40 mg IVP Q8HR Sodium Chloride 0.9% [Sodium Chloride] 1,000 ml Meds 04/17/24 20:30 Active IV 100 mls/hr Verapamil HCl [[place]] Meds 04/18/24 09:00 Active 80 mg PO TID
[2024-04-19 05:20] LABS: BASOPHILS % (AUTO) 0.1 % (0.0-3.0); EOSINOPHILS % (AUTO) 0.3 % (0.0-7.0); HEMATOCRIT 35.5 % (37.0-47.0); HEMOGLOBIN 11.4 g/dl (12.0-16.0); IMMATURE GRANULOCYTE # (AUTO) 0.1 (0.0-1.0); IMMATURE GRANULOCYTE % (AUTO) 0.5 % (0.0-5.0); LYMPHOCYTES # (AUTO) 1.2 K/uL (0.60-3.4); LYMPHOCYTES % (AUTO) 12.6 (10.0-50.0); MEAN CORPUSCULAR HEMOGLOBIN 32.2 pg (27.0-31.0); MEAN CORPUSCULAR HGB CONC 32.1 (31.8-35.4); MEAN CORPUSCULAR VOLUME 100.3 fl (81.0-99.0); MONOCYTES # (AUTO) 0.3 K/uL (0.4-2.0); MONOCYTES % (AUTO) 2.9 (0-10); NEUTROPHILS # (AUTO) 7.7 K/ul (2.0-6.9); NEUTROPHILS % (AUTO) 83.6 % (42.2-75.2); PLATELET COUNT 216 10^3/uL (140-440); RDW COEFFICIENT OF VARIATION 13.8 % (11.6-14.8); RED BLOOD COUNT 3.54 10^6/ul (4.20-5.40)
[2024-04-19 05:37] LABS: ALANINE AMINOTRANSFERASE 16.6 U/L (0-35); ALBUMIN 3.7 g/dL (3.5-5.0); ALKALINE PHOSPHATASE 62.5 U/L (53-141); ASPARTATE AMINO TRANSFERASE 24.3 U/L (14-36); BILIRUBIN,TOTAL 0.39 mg/dL (0.2-1.3); CALCIUM 8.63 mg/dL (8.4-10.2); CARBON DIOXIDE 27.6 mmol/L (22-30.0); CHLORIDE 97.8 mmol/L (98-107); CREATININE 0.61 mg/dL (0.60-1.30); GLUCOSE 147.6 mg/dL (74-106); POTASSIUM 3.53 mmol/L (3.5-5.1); SODIUM 131.1 mmol/L (134.5-145); TOTAL PROTEIN 7.23 g/dL (6.3-8.2)
--- NOTE | 2024-04-19 11:03 | PCM.PROG ---
Date/Time Seen Date Seen by Provider: 04/19/24 Time Seen by Provider: 08:30 Provider [facility] Chief Complaint Chief Complaint: ALT MENTAL STATUS, RESPIRATORY ISSUES Subjective Subjective: Had episodes of confusion overnight per nursing staff. Oriented x 3 this am. Nursing confusion with home oxygen - she was weaned to RA and dropped into 80s while sleeping. Placed back on 1L and sat returned to low 90s. Discussed extensively with daughter on phone extent of confusion at home. Reports that she is having trouble finding the appropriate words to things that she normally would say. Just started 2 days ago after taking afternoon nap. No slurred speech or focal deficits. Daughter reported patient being weak and not walking much over the last couple days. Pt consult completed and during consult patient O2 sat dropped to 82% on RA. Patient was attempting to say that she could not breathe or was short of breath and could not find the words. Previous O2 requirement 2L at bedtime. Completed mini mental exam and scored a 28. Only had difficulty with the country and repeating the 3 words to remember. Objective Appearance: Positive No Apparent Distress and Alert and Oriented x3 Chest/Lungs: Positive Symmetrical With Equal Breath Sounds and Clear to Auscultation Bilaterally (mildly diminished, conversational dyspnea present) Heart: Positive RRR and Pulses Normal GI/: Positive Soft, Nontender, Bowel Sounds Normal and No Distention Musculoskeletal: Positive Not Examined Neurological: Positive Sensation Intact, Motor intact, Alert and Oriented Vital Signs Vital Signs: Vital Signs: Last 24 Hours 04/18/24 12:00 04/18/24 12:26 04/18/24 13:00 Temperature Temperature Source Pulse Rate Respiratory Rate Blood Pressure Blood Pressure Mean Blood Pressure Location Blood Pressure Position O2 Sat by Pulse Oximetry Oxygen Delivery Method Nasal Cannula Nasal Cannula Oxygen Flow Rate Telemetry Type Telemetry Monitoring Continues Telemetry Heart Rate 68 EKG NJ Interval 0.20 EKG QRS Interval 0.08 Telemetry Strip Reading NSR 04/18/24 13:43 04/18/24 13:56 04/18/24 14:00 Temperature 97.9 F Temperature Source Pulse Rate 68 Respiratory Rate 18 Blood Pressure 143/83 H Blood Pressure Mean 103 Blood Pressure Location Left Arm Blood Pressure Position Supine O2 Sat by Pulse Oximetry 96 96 Oxygen Delivery Method Nasal Cannula Nasal Cannula Nasal Cannula Oxygen Flow Rate 1 1 Telemetry Type Telemetry Monitoring Telemetry Heart Rate EKG NJ Interval EKG QRS Interval Telemetry Strip Reading 04/18/24 15:00 04/18/24 16:00 04/18/24 17:00 Temperature Temperature Source Pulse Rate Respiratory Rate Blood Pressure Blood Pressure Mean Blood Pressure Location Blood Pressure Position O2 Sat by Pulse Oximetry Oxygen Delivery Method Nasal Cannula Room Air Room Air Oxygen Flow Rate Telemetry Type Telemetry Monitoring Telemetry Heart Rate EKG NJ Interval EKG QRS Interval Telemetry Strip Reading 04/18/24 17:53 04/18/24 18:00 04/18/24 19:00 Temperature 98.6 F Temperature Source Temporal Artery Scan Pulse Rate 73 Respiratory Rate 16 Blood Pressure 131/69 Blood Pressure Mean 89 Blood Pressure Location Left Arm Blood Pressure Position Supine O2 Sat by Pulse Oximetry 93 L Oxygen Delivery Method Room Air Nasal Cannula Nasal Cannula Oxygen Flow Rate 1 Telemetry Type Telemetry Monitoring Telemetry Heart Rate EKG NJ Interval EKG QRS Interval Telemetry Strip Reading 04/18/24 19:00 04/18/24 20:00 04/18/24 20:00 Temperature Temperature Source Pulse Rate Respiratory Rate Blood Pressure Blood Pressure Mean Blood Pressure Location Blood Pressure Position O2 Sat by Pulse Oximetry Oxygen Delivery Method Nasal Cannula Nasal Cannula Oxygen Flow Rate 2 Telemetry Type Remote Telemetry Telemetry Monitoring Continues Telemetry Heart Rate 67 EKG NJ Interval 0.16 EKG QRS Interval 0.06 Telemetry Strip Reading NSR 04/18/24 20:00 04/18/24 20:38 04/18/24 21:00 Temperature 98.2 F Temperature Source Temporal Artery Scan Pulse Rate 65 Respiratory Rate 17 Blood Pressure 125/68 Blood Pressure Mean 87 Blood Pressure Location Left Arm Blood Pressure Position Supine O2 Sat by Pulse Oximetry 92 L 95 Oxygen Delivery Method Nasal Cannula Nasal Cannula Nasal Cannula Oxygen Flow Rate 0.5 1 Telemetry Type Telemetry Monitoring Telemetry Heart Rate EKG NJ Interval EKG QRS Interval Telemetry Strip Reading 04/18/24 22:00 04/18/24 23:00 04/19/24 00:00 Temperature Temperature Source Pulse Rate Respiratory Rate Blood Pressure Blood Pressure Mean Blood Pressure Location Blood Pressure Position O2 Sat by Pulse Oximetry Oxygen Delivery Method Nasal Cannula Nasal Cannula Nasal Cannula Oxygen Flow Rate Telemetry Type Telemetry Monitoring Telemetry Heart Rate EKG NJ Interval EKG QRS Interval Telemetry Strip Reading 04/19/24 01:00 04/19/24 01:00 04/19/24 02:00 Temperature Temperature Source Pulse Rate Respiratory Rate Blood Pressure Blood Pressure Mean Blood Pressure Location Blood Pressure Position O2 Sat by Pulse Oximetry Oxygen Delivery Method Nasal Cannula Nasal Cannula Oxygen Flow Rate Telemetry Type Remote Telemetry Telemetry Monitoring Continues Telemetry Heart Rate 66 EKG NJ Interval 0.18 EKG QRS Interval 0.06 Telemetry Strip Reading R 04/19/24 03:00 04/19/24 04:00 04/19/24 05:00 Temperature Temperature Source Pulse Rate Respiratory Rate Blood Pressure Blood Pressure Mean Blood Pressure Location Blood Pressure Position O2 Sat by Pulse Oximetry Oxygen Delivery Method Nasal Cannula Nasal Cannula Nasal Cannula Oxygen Flow Rate Telemetry Type Telemetry Monitoring Telemetry Heart Rate EKG NJ Interval EKG QRS Interval Telemetry Strip Reading 04/19/24 05:00 04/19/24 05:09 04/19/24 05:45 Temperature 97 F L Temperature Source Temporal Artery Scan Pulse Rate 67 Respiratory Rate 16 Blood Pressure 164/98 H Blood Pressure Mean 120 Blood Pressure Location Left Arm Blood Pressure Position Supine O2 Sat by Pulse Oximetry 93 L 92 L Oxygen Delivery Method Nasal Cannula Nasal Cannula Nasal Cannula Oxygen Flow Rate 1 1 Telemetry Type Telemetry Monitoring Telemetry Heart Rate EKG NJ Interval EKG QRS Interval Telemetry Strip Reading 04/19/24 06:00 04/19/24 07:00 04/19/24 07:00 Temperature Temperature Source Pulse Rate Respiratory Rate Blood Pressure Blood Pressure Mean Blood Pressure Location Blood Pressure Position O2 Sat by Pulse Oximetry Oxygen Delivery Method Nasal Cannula Nasal Cannula Oxygen Flow Rate Telemetry Type Remote Telemetry Telemetry Monitoring Continues Telemetry Heart Rate 65 EKG NJ Interval 0.20 EKG QRS Interval 0.08 Telemetry Strip Reading R 04/19/24 08:00 04/19/24 08:53 04/19/24 10:00 Temperature Temperature Source Pulse Rate Respiratory Rate Blood Pressure Blood Pressure Mean Blood Pressure Location Blood Pressure Position O2 Sat by Pulse Oximetry Oxygen Delivery Method Nasal Cannula Nasal Cannula Nasal Cannula Oxygen Flow Rate Telemetry Type Telemetry Monitoring Telemetry Heart Rate EKG NJ Interval EKG QRS Interval Telemetry Strip Reading 04/19/24 10:00 04/19/24 10:00 04/19/24 11:00 Temperature 97.9 F Temperature Source Temporal Artery Scan Pulse Rate 69 Respiratory Rate 24 H Blood Pressure 144/62 H Blood Pressure Mean 89 Blood Pressure Location Right Arm Blood Pressure Position O2 Sat by Pulse Oximetry 91 L 90 L Oxygen Delivery Method Room Air Room Air Nasal Cannula Oxygen Flow Rate Telemetry Type Telemetry Monitoring Telemetry Heart Rate EKG NJ Interval EKG QRS Interval Telemetry Strip Reading Lab Results Lab Results: Lab Results: Last 24 Hours 04/19/24 05:10 WBC 9.20 RBC 3.54 L Hgb 11.4 L Hct 35.5 L MCV 100.3 H MCH 32.2 H MCHC 32.1 RDW Coeff of [place] 13.8 Plt Count 216 Immature Gran % (Auto) 0.5 Neut % (Auto) 83.6 H Lymph % (Auto) 12.6 [place] % (Auto) 2.9 Eos % (Auto) 0.3 Baso % (Auto) 0.1 Neut # (Auto) 7.7 H Lymph # (Auto) 1.2 [place] # (Auto) 0.3 L Eos # (Auto) 0.0 Baso # (Auto) 0.0 Immature Gran # (Auto) 0.1 Sodium 131.1 L Potassium 3.53 Chloride 97.8 L Carbon Dioxide 27.6 Anion Gap 9.23 BUN 16.0 Creatinine 0.61 Estimated GFR (MDRD) 95.00 BUN/Creatinine Ratio 26.22 Glucose 147.6 H Calcium 8.63 Total Bilirubin 0.39 AST 24.3 ALT 16.6 Alkaline Phosphatase 62.5 Total Protein 7.23 Albumin 3.70 Globulin 3.53 Albumin/Globulin Ratio 1.04 Additional Comments Additional Comments: I have independently reviewed and interpreted the labs/EKGs/imaging ordered during this hospital stay. I have reviewed outside records that are available in our EMR that pertain to medical stay including imaging/notes/labs from previous visits. Active Medications Active Medications: Medications Generic Name Dose Route Start Last Admin Trade Name Freq PRN Reason Stop Dose Admin Acetaminophen 650 mg 04/17/24 20:21 Acetaminophen 325 Mg Tablet PO Q4H PRN Mild Pain Albuterol Sulfate 2.5 mg 04/18/24 09:09 Albuterol Sulfate 0.083% Vial.Neb NEB RTQ4H PRN Wheezing Albuterol/Ipratropium 3 ml 04/18/24 10:00 04/19/24 10:21 Ipratropium/Albuterol Vial.Neb NEB 3 ml RTQ4H COOKIE Administration Atenolol 100 mg 04/18/24 09:00 04/19/24 08:26 Atenolol 50 Mg Tablet PO 100 mg DAILY COOKIE Administration Azithromycin 500 mg 04/18/24 09:00 04/19/24 08:26 Azithromycin 250 Mg Tablet PO 04/21/24 08:59 500 mg DAILY COOKIE Administration Folic Acid 1 mg 04/18/24 09:00 04/19/24 08:26 Folic Acid 1 Mg Tablet PO 1 mg DAILY COOKIE Administration CEFTRIAXONE/D5W 1 GM PREMIX 1 gm in 50 mls @ 100 mls/hr 04/18/24 09:00 04/19/24 08:30 Rocephin 1 Gm/50 Ml D5w IV 04/21/24 08:59 100 mls/hr DAILY COOKIE Administration Methylprednisolone Sodium Succinate 40 mg 04/18/24 03:00 04/19/24 05:25 Methylprednisolone Sod Succ/Pf 40 Mg/Ml Vial IVP 40 mg Q8HR COOKIE Administration Sodium Chloride 1 syr 04/17/24 16:46 04/18/24 20:12 0.9% Sodium Chloride 10 Ml Disp.Syrin IVF 1 syr PRN PRN Administration To flush IV Verapamil HCl 80 mg 04/18/24 09:00 04/19/24 08:26 Verapamil Hcl 80 Mg Tablet PO 80 mg TID COOKIE Administration Plan Plan: 1. Acute Hypoxic Respiratory Failure in setting of pneumonia and COPD exacerbation - Unchanged, 82% sat on ambulation on RA, wean O2 as tolerated, steroids, nebs 2. CAP - rocephin and azith, steroids, nebs 3. COPD - chronic, wears 2L at bedtime, plan as above 4. Hyponatremia - chronic, Improved, stop fluids 5. Acute Metabolic Encephalopathy - likely due to hypoxia and pneumonia, avoid neurologically altering agents, monitor 6. Hypertension - chronic, continue home medication DVT Prophylaxis: Ambulation Review Statement Review Statement: I have personally discussed and reviewed the patient's visit/currently labs/imaging/decision making with Dr. Monzon, my supervising attending. Greater that 50 minutes spent with patient, 50% of the time spent with this patient was devoted to counseling and coordination of care.
[2024-04-20 05:11] LABS: EOSINOPHILS # (AUTO) 0.1 K/ul (0.0-0.7); EOSINOPHILS % (AUTO) 0.7 % (0.0-7.0); HEMOGLOBIN 11.4 g/dl (12.0-16.0); IMMATURE GRANULOCYTE # (AUTO) 0.1 (0.0-1.0); IMMATURE GRANULOCYTE % (AUTO) 0.7 % (0.0-5.0); LYMPHOCYTES # (AUTO) 1.1 K/uL (0.60-3.4); LYMPHOCYTES % (AUTO) 13.1 (10.0-50.0); MEAN CORPUSCULAR HEMOGLOBIN 32.4 pg (27.0-31.0); MEAN CORPUSCULAR HGB CONC 32.6 (31.8-35.4); MEAN CORPUSCULAR VOLUME 99.4 fl (81.0-99.0); MONOCYTES # (AUTO) 0.3 K/uL (0.4-2.0); MONOCYTES % (AUTO) 3.2 (0-10); NEUTROPHILS % (AUTO) 82.3 % (42.2-75.2); PLATELET COUNT 226 10^3/uL (140-440); RDW COEFFICIENT OF VARIATION 13.6 % (11.6-14.8); RED BLOOD COUNT 3.52 10^6/ul (4.20-5.40); WHITE BLOOD COUNT 8.47 K/ul (4.6-10.2)
[2024-04-20 05:25] LABS: ALANINE AMINOTRANSFERASE 37.3 U/L (0-35); ALBUMIN 3.83 g/dL (3.5-5.0); ALKALINE PHOSPHATASE 54.4 U/L (53-141); ASPARTATE AMINO TRANSFERASE 50.4 U/L (14-36); BILIRUBIN,TOTAL 0.38 mg/dL (0.2-1.3); BLOOD UREA NITROGEN 24.4 mg/dL (7-17); CALCIUM 8.75 mg/dL (8.4-10.2); CARBON DIOXIDE 29.4 mmol/L (22-30.0); CREATININE 0.59 mg/dL (0.60-1.30); GLUCOSE 143.6 mg/dL (74-106); POTASSIUM 3.43 mmol/L (3.5-5.1); SODIUM 130.8 mmol/L (134.5-145); TOTAL PROTEIN 7.31 g/dL (6.3-8.2)
[2024-04-20] MEDS: K-DUR PO ONE (08:36)
--- NOTE | 2024-04-20 09:16 | DCSUM ---
Admission Date Admission Date: 04/17/24 Discharge Date Discharge Date: 04/20/24 Admission Diagnosis Admission Diagnosis: 1. Acute Hypoxic Respiratory Failure in setting of pneumonia and COPD exacerbation 2. CAP 3. COPD 4. Hyponatremia 5. Acute Metabolic Encephalopathy 6. Hypertension Discharge Diagnosis Discharge Diagnosis: 1. Acute Hypoxic Respiratory Failure in setting of pneumonia and COPD exacerbation - Stable, new O2 requirement of 2L continuous 2. CAP - Improving 3. COPD - Improving 4. Hyponatremia - chronic, stable 5. Acute Metabolic Encephalopathy - Resolved 6. Hypertension - Chronic, stable Hospital Provider Hospital [facility] Primary Care Physician Primary Care Physician: KAREN DAVID APRN, FNP-C Summary of History and Physical Summary of History and Physical: 78 yo female with pmh of copd and htn presented to the ER with complaints of AMS. Daughter reported in ER that patient layed down to take a nap and when she woke up she was talking out of her head and not making sense. CT head negative. No focal deficits. Alert and oriented in ER. Patient found to have pneumonia and began requiring 2L of oxygen due to sat dropping down to 90%. Does not wear oxygen at home during the day, but does wear 2L at bedtime or napping. Patient alert and oriented this am. Reports she has felt short of breath and nonproductive cough present over the last couple days. Denies fever that she is aware of or other symptoms. Patient has moderate conversational dyspnea at this time. Hospital Course Subjective: During stay, patient was treated for CAP with rocephin, azith, steroids, and nebs. She normally does not wear oxygen during the day and was weaned to RA. Yesterday during ambulation had sob and was attempting to voice that she could not breathe. O2 sat was found to be 82%. I suspect worsening COPD. At home daughter reported episode of confusion that day which does not normally happen to the patient. Mini mental exam performed to r/o dementia. Score of 28 noted. Feel that this episodes of confusion may be related to hypoxic episodes occurring due to worsening COPD as well as pneumonia present at this time. Patient will need 2L continuous O2 upon discharge. Has hx of chronic hyponatremia maintaining around 129-131, level 130 today. No changes to home medications. Added duonebs TID Complete course of augmentin for pneumonia. Appearance: Pleasant, No Apparent Distress and Alert HEENT: MMM and Supple CVS: No Murmur Abdomen: Soft Respiratory: No Dyspnea Extremities: No Edema Vital Signs: Most Recent Vital Signs Temperature 97.1 F L 04/20/24 05:39 Temperature Source Temporal Artery Scan 04/20/24 05:39 Temperature Source Infrared 04/17/24 16:43 Pulse Rate 60 04/20/24 05:39 Respiratory Rate 16 04/20/24 05:39 Blood Pressure 158/87 H 04/20/24 05:39 Blood Pressure Mean 110 04/20/24 05:39 Blood Pressure Left Arm 171/63 04/17/24 21:04 Blood Pressure Location Left Arm 04/20/24 05:39 Blood Pressure Position Supine 04/20/24 05:39 O2 Sat by Pulse Oximetry 95 04/20/24 05:41 Oxygen Delivery Method Nasal Cannula 04/20/24 08:00 Oxygen Flow Rate 2 04/20/24 08:00 Height 5 ft 04/20/24 08:25 Weight 63.9 kg 04/20/24 08:25 Telemetry Type Remote Telemetry 04/20/24 07:00 Telemetry Monitoring Continues 04/20/24 07:00 Telemetry Heart Rate 75 04/20/24 07:00 EKG OK Interval 0.16 04/20/24 07:00 EKG QRS Interval 0.07 04/20/24 07:00 Telemetry Strip Reading SR 04/20/24 07:00 Imaging: EXAM: CHEST FRONTAL VIEW IMPRESSION: Heart size upper limit normal. Mild to moderate atherosclerotic disease. Questionable mild infiltrate in the left base. Lungs were otherwise unremarkable. No pleural fluid, vascular congestion or pneumothorax. No acute bony finding EXAM: CT HEAD WITHOUT CONTRAST FINDINGS: Ventricular size is normal. Old infarct right cerebellar hemisphere. Mild temporal atrophy. Scattered white matter attenuation likely secondary to chronic small vessel ischemia. Old appearing lacunar infarct of the junction of the caudate head and caudate body nucleus on the left. [place]-white matter interfaces are preserved with no evidence of acute infarct. No evidence of intracranial hemorrhage. No midline shift or mass effect. No ectopia. Paranasal sinuses and mastoid air cells are clear. Orbital contents are normal. The calvarium is intact. IMPRESSION: 1. 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 2. Atrophy 3. Scattered white matter attenuation likely secondary to chronic small vessel disease. 4. No acute findings. Lab Results Last 24 Hours: 04/20/24 05:01 WBC 8.47 RBC 3.52 L Hgb 11.4 L Hct 35.0 L MCV 99.4 H MCH 32.4 H MCHC 32.6 RDW Coeff of [place] 13.6 Plt Count 226 Immature Gran % (Auto) 0.7 Neut % (Auto) 82.3 H Lymph % (Auto) 13.1 [place] % (Auto) 3.2 Eos % (Auto) 0.7 Baso % (Auto) 0.0 Neut # (Auto) 7.0 H Lymph # (Auto) 1.1 [place] # (Auto) 0.3 L Eos # (Auto) 0.1 Baso # (Auto) 0.0 Immature Gran # (Auto) 0.1 Sodium 130.8 L Potassium 3.43 L Chloride 96.0 L Carbon Dioxide 29.4 Anion Gap 8.83 BUN 24.4 H Creatinine 0.59 L Estimated GFR (MDRD) 99.00 BUN/Creatinine Ratio 41.35 Glucose 143.6 H Calcium 8.75 Total Bilirubin 0.38 AST 50.4 H D ALT 37.3 H Alkaline Phosphatase 54.4 Total Protein 7.31 Albumin 3.83 Globulin 3.48 Albumin/Globulin Ratio 1.10 Discharge Instructions Discharge Planning: Discharge Planning > 40 minutes If patient is discharged with left ventricular systolic dysfunction: no Discharged with a beta raghav? [] If no, why not? [] Discharged with an serenity/arb? [] If no, why not? [] Diagnosis: Pneumonia, COPD Diet: Regular Activity: as tolerated Follow-up with PCP next week Medications: [facility] 2 Discharge Medications: Medications at Discharge (Home Meds & RX) cetirizine 10 mg capsule (Zyrtec) 10 mg PO QDAY PRN allergy symptoms #30 caps 06/24/23 albuterol sulfate 2.5 mg/3 mL (0.083 %) solution for nebulization See Rx Instructions .Route .COMPLEX #180 ea 10/15/23 hydrochlorothiazide 12.5 mg tablet 12.5 mg PO QAM PRN swelling #14 tabs 11/10/23 potassium chloride 8 mEq capsule,extended release 8 meq PO QDAY PRN on days of HCTZ #14 caps 11/10/23 folic acid 1 mg tablet See Rx Instructions .Route .COMPLEX #90 tabs 01/18/24 verapamil 80 mg tablet 80 mg PO TID #90 tabs 02/16/24 albuterol sulfate 90 mcg/actuation aerosol inhaler 2 puff PO Q6H PRN for wheezing #6.7 ea 02/29/24 atenolol 100 mg tablet See Rx Instructions .Route .COMPLEX #90 tabs 02/29/24 mometasone-formoterol HFA 100 mcg-5 mcg/actuation aerosol inhaler (Dulera) See Rx Instructions .Route .COMPLEX #13 ea 02/29/24 triamcinolone acetonide 0.1 % topical cream See Rx Instructions .Route .COMPLEX PRN skin irritation 04/17/24 Discharge Plan Discharge Discharge Orders: Discharge Patient (ONCE); Ordered 04/20/24 Ordered By: OSVALDO MAC Activity Restrictions/Additional Instructions: Diagnosis: Pneumonia, COPD Diet: Regular Activity: as tolerated Follow-up with Primary Care Physician next week Medications: [facility] 2 Instructions: COPD (Chronic Obstructive Pulmonary Disease) (GEN), Community Acquired Pneumonia (GEN) Care Plan Goals: Problem: Impaired Respiratory Status Goal: Exhibit optimal respiratory function Instructions: Activities as tolerated Apply oxygen as ordered Elevate head of bed Notify MD of increased congestion Problem: Activity Intolerance Goal: Demonstrate increased activity intolerance Instructions: Determine cause of activity intolerance Change positions slowly Gradually increase activity Report intolerances to provider Patient Disposition: HOME WITH FAMILY CARE Prescriptions: New ipratropium-albuterol 0.5 mg-3 mg(2.5 mg base)/3 mL Solution For Nebulization 3 ml NEB RTTID Qty: 180 0RF prednisone 10 mg tablet 10 mg PO DAILY Qty: 3 0RF cefuroxime axetil 500 mg tablet 500 mg PO BID 3 Days Qty: 6 0RF Continued albuterol sulfate 2.5 mg /3 mL (0.083 %) solution for nebulization See Rx Instructions .ROUTE .COMPLEX Qty: 180 11RF Dose Instruction: USE 1 VIAL IN NEBULIZER EVERY 4 TO 6 HOURS - As Needed Rx Instructions: USE 1 VIAL IN NEBULIZER EVERY 4 TO 6 HOURS - As Needed folic acid 1 mg tablet See Rx Instructions .ROUTE .COMPLEX Qty: 90 0RF Dose Instruction: TAKE 1 TABLET BY MOUTH DAILY Rx Instructions: TAKE 1 TABLET BY MOUTH DAILY verapamil 80 mg tablet 80 mg PO TID Qty: 90 0RF albuterol sulfate 90 mcg/actuation HFA aerosol inhaler 2 puff PO Q6H PRN (Reason: for wheezing) Qty: 6.7 1RF Dulera 100-5 mcg/actuation HFA aerosol inhaler See Rx Instructions .ROUTE .COMPLEX Qty: 13 3RF Dose Instruction: INHALE TWO PUFFS TWICE DAILY Rx Instructions: INHALE TWO PUFFS TWICE DAILY atenolol 100 mg tablet See Rx Instructions .ROUTE .COMPLEX Qty: 90 0RF Dose Instruction: TAKE 1 TABLET BY MOUTH EVERY MORNING Rx Instructions: TAKE 1 TABLET BY MOUTH EVERY MORNING triamcinolone acetonide 0.1 % cream See Rx Instructions .ROUTE .COMPLEX PRN (Reason: skin irritation) Rx Instructions: APPLY TOPICALLY TO THE AFFECTED AREA TWICE DAILY PRN; Zyrtec 10 mg capsule 10 mg PO QDAY PRN (Reason: allergy symptoms) Qty: 30 2RF hydrochlorothiazide 12.5 mg tablet 12.5 mg PO QAM PRN (Reason: swelling) Qty: 14 0RF potassium chloride 8 mEq capsule, extended release 8 meq PO QDAY PRN (Reason: on days of HCTZ) Qty: 14 0RF Rx Instructions: only take on days of hydrochlorithiazide Did you review [place] METAL [employer] for ALL controlled substances?: No Discussed opioids are addictive and Narcan is available by prescription or from pharmacy.: No Condition: Stable Referrals: KAREN DAVID APRN,[employer]-C [Primary Care Provider] - 04/25/24 10:00 am
[2024-04-20 09:38] VITALS: BP 156/76; PULSE 65; RESP 18; TEMP 96.9
== END 2024-04-20 12:51 | disposition home or self-care (01) | DRG 190 ==
LOC: ED 16:38 → MEDSURG B 16:38
PROVIDERS: ADMIT Hospitalist; ATTEND Nurse Practitioner Family